=== PATIENT | male | born 1950 | race Caucasian/White ===

== ENCOUNTER → 2017-03-29 | Day surgery (SDC) | payer MEDICARE ==
[~2017-03-29] MED LIST: CARD240C6 PO; CARV25TA PO; DOCU1CAP39 PO; ENOX60P SQ; FURO1TAB93 PO; LEVEMIR SQ; LEVO112T2 PO; NRSS SQ; PROPOFOL 500 MG/50 ML BTL IV ONE; SIMV40 PO; TAMS.4 PO; TEMA15 PO; TUMS CHEW; WARF5TAB PO
--- NOTE | 2017-03-29 12:27 | GIPROC ---
[facility] [address] [facility], [address] EGD PROCEDURE REPORT EXAM DATE: 03/29/2017 PATIENT NAME: Elliott Johnson MR #: [id number] BIRTHDATE: 1950 ATTENDING: Bryan Holcomb MD ORDER #: [id number] ASSOCIATE VICE PRESIDENT: Susy Harrell RN STATUS: outpatient INDICATIONS: The patient is a 66 yr old male here for an EGD due to Preoperative assessment PROCEDURE PERFORMED: EGD w/ biopsy MEDICATIONS: None, Per Anesthesia, None, and Per Anesthesia. TOPICAL ANESTHETIC: CONSENT: The patient understands the risks and benefits of the procedure and understands that these risks include, but are not limited to: sedation, allergic reaction, infection, perforation and/or bleeding. Alternative means of evaluation and treatment include, among others: physical exam, x-rays, and/or surgical intervention. The patient elects to proceed with this endoscopic procedure. medical equipment was checked for proper function. Hand hygiene and appropriate measures for infection prevention was taken. After the risks, benefits and alternatives of the procedure were thoroughly explained, Informed consent was verified, confirmed and timeout was successfully executed by the treatment team. The patient was anesthetized with topical anesthesia and the EC-3890Li ([id number]) and EC-3890Li ([id number]) endoscope was introduced through the mouth and advanced to the second portion of the duodenum. Retroflexed views revealed no abnormalities The gastroscope was then slowly withdrawn and removed. STOMACH: There was mild gastritis in the gastric antrum. Multiple biopsies were performed. The endoscopy was otherwise normal. ADVERSE EVENTS: There were no complications. IMPRESSIONS: 1. There was mild gastritis in the gastric antrum; multiple biopsies were performed 2. Normal endoscopy otherwise 3. Retroflexed views revealed no abnormalities RECOMMENDATIONS: 1. Await biopsy results. Biopsy results will not be ready for 7-10 days. If you don't hear from us in two weeks, call our office for biopsy results. 2. Follow-up: GI clinic PRN 3. Cleared for bariatric surgery if biopsies neg PATIENT CONDITION: stable DISPOSITION: Home REPEAT EXAM: Bryan Holcomb MD eSigned: Bryan Holcomb MD 03/29/2017 12:27 PM cc: Alex Hoang [facility] [place]
--- NOTE | 2017-03-29 12:30 | GIPROC ---
[facility] [address] [facility], [address] COLONOSCOPY PROCEDURE REPORT EXAM DATE: 03/29/2017 PATIENT NAME: Elliott Johnson MR #: [id number] BIRTHDATE: 1950 ENDOSCOPIST: Bryan Holcomb MD ORDER #: [id number] ALTERATION WORKER: Susy Harrell RN STATUS: outpatient INDICATIONS: The patient is a 66 yr old male here for a colonoscopy due to average risk patient for colon cancer PROCEDURE PERFORMED: Colonoscopy with polypectomy MEDICATIONS: None and Per Anesthesia. PREP QUALITY: good ESTIMATED BLOOD LOSS: None CONSENT: The patient understands the risks and benefits of the procedure and understands that these risks include, but are not limited to: sedation, allergic reaction, infection, perforation and/or bleeding. Alternative means of evaluation and treatment include, among others: physical exam, x-rays, and/or surgical intervention. The patient elects to proceed with this endoscopic procedure. medical equipment was checked for proper function. Hand hygiene and appropriate measures for infection prevention was taken. After the risks, benefits and alternatives of the procedure were thoroughly explained, Informed consent was verified, confirmed and timeout was successfully executed by the treatment team. A digital exam revealed no abnormalities of the rectum The EC-3890Li ([id number]) endoscope was introduced through the anus and advanced to the cecum, which was identified by both the appendix and ileocecal valve. The instrument was then slowly withdrawn as the colon was fully examined. COLON FINDINGS: Three medium sized large polypoid shaped sessile polyps were found in the ascending colon and transverse colon. A polypectomy was performed with a cold snare. The resection was complete and the polyp tissue was completely retrieved. The colon mucosa was otherwise normal. Retroflexed views revealed no abnormalities The scope was then completely withdrawn from the patient and the procedure terminated. PROCEDURE WITHDRAWAL TIME:13.0minutes ADVERSE EVENTS: There were no complications. IMPRESSIONS: 1. Three medium sized large sessile polyps were found in the ascending colon and transverse colon; polypectomy was performed with a cold snare 2. The colon mucosa was otherwise normal 3. Retroflexed views revealed no abnormalities 4. Revealed no abnormalities of the rectum RECOMMENDATIONS: 1. Await biopsy results. Biopsy results will not be ready for 7-10 days. If you don't hear from us in two weeks, call our office for results. 2. Follow-up: GI Clinic 4 week(s) 3. Yearly hemoccult 4. High fiber diet RECALL: Return 3 years Colonoscopy Bryan Holcomb MD eSigned: Bryan Holcomb MD 03/29/2017 12:30 PM cc: Alex Acosta M.D, Jesus Quiles M.D, and Jason Hoang [facility] PATIENT NAME: Elliott Johnson MR#: [id number]
== END | disposition home or self-care (01) ==
LOC: ESDC 09:38
PROVIDERS: ATTEND Internal Medicine Gastroenterology
DX: Z12.11 Encounter for screening for malignant neoplasm of colon (principal); D12.2 Benign neoplasm of ascending colon; D12.3 Benign neoplasm of transverse colon; K29.70 Gastritis, unspecified, without bleeding
CPT/HCPCS: 00740; 00810; 43239; 45385; 82948; 88305; 88312; J3010